=== PATIENT | female | born 1980 | race Caucasian/White ===

== ENCOUNTER 2023-05-01 08:19 | Inpatient (IN) | payer OTHER ==
[2023-05-01 08:58] VITALS: BMI 45.7
[2023-05-01] MEDS ORDERED: SODIUM CHLORIDE 1,000 ML IV SCH (09:00)
[2023-05-01 09:17] LABS: BASO % 0.3 % (0-2.0); EOS % 2.4 % (0-4.5); HEMATOCRIT 36.8 % (32.4-45.2); HEMOGLOBIN 12.9 GM/dL (10.7-15.3); LYMPH % 26.9 % (8-40); MCH 27.9 pg (25.7-33.7); MEAN CELL VOLUME 79.7 fl (80-96); MEAN PLT VOLUME 10.6 fl (7.5-11.1); MONO % 8.8 % (3.8-10.2); NEUT % 61.6 % (42.8-82.8); PLATELET COUNT 235 10^3/uL (134-434); RBC 4.62 M/mm3 (3.60-5.2); RDW 14.2 % (11.6-15.6); WHITE BLOOD COUNT 10.1 K/mm3 (4.0-10.0)
[2023-05-01 09:28] LABS: INR 1.09 (0.83-1.09); PROTHROMBIN TIME (PATIENT) 12.6 SEC (9.7-13.0)
[2023-05-01 09:31] LABS: ACTIVATED PTT 26.9 SECONDS (25.2-36.5)
[2023-05-01 09:54] LABS: POTASSIUM 3.9 mmol/L (3.5-5.1)
[2023-05-01 09:55] LABS: CALCIUM 9.3 mg/dL (8.5-10.1)
[2023-05-01 09:56] LABS: BLOOD UREA NITROGEN 5.1 mg/dL (7-18)
[2023-05-01 09:59] LABS: CREATININE 0.5 mg/dL (0.55-1.3)
[2023-05-01] MEDS ORDERED: TERBUTALINE SULFATE 1 MG/1 ML VIAL SQ ONE ×3 (10:20→11:57)
[2023-05-01 11:46] VITALS: BP 147/77; RESP 18; TEMP 98.3
[2023-05-01 12:45] VITALS: PULSE 115
== END 2023-05-01 13:07 | disposition home or self-care (01) | DRG 566 ==
LOC: JLDR 08:19
PROVIDERS: ADMIT Obstetrics & Gynecology Maternal & Fetal Medicine; ATTEND Obstetrics & Gynecology Maternal & Fetal Medicine
DX: O32.1XX0 Maternal care for breech presentation, not applicable or unspecified (principal); O99.213 Obesity complicating pregnancy, third trimester; O13.3 Gestational [pregnancy-induced] hypertension without significant proteinuria, third trimester; Z3A.39 39 weeks gestation of pregnancy
CPT/HCPCS: 36415; 80048; 85025; 85610; 85730; 86780; 86850; 86900; 86901